=== PATIENT | female | born 1980 ===

== ENCOUNTER 2018-01-19 17:38 | Emergency (ER) | payer OTHER ==
[2018-01-19 17:39] VITALS: BMI 32.9
[2018-01-19 17:50] VITALS: O2SAT 99
[2018-01-19 18:30] LABS: URINE BILIRUBIN NEGATIVE (NEGATIVE); URINE BLOOD NEGATIVE (NEGATIVE); URINE CLARITY Clear (Clear); URINE COLOR Straw (YELLOW); URINE GLUCOSE (UA) NORMAL (Normal); URINE LEUKOCYTE ESTERASE NEG Leu/uL (Negative); URINE PROTEIN NEGATIVE (NEGATIVE); URINE UROBILINOGEN NORMAL mg/dL (0.2-1.0)
[2018-01-19 18:47] LABS: BASO # 0.1 K/uL (0.0-0.2); BASO % 0.9 % (0.0-2.0); EOS # 0.1 K/uL (0.0-0.7); EOS % 1.5 % (0.0-4.0); HEMOGLOBIN 12.8 g/dL (11.0-16.0); LYMPH # 1.8 K/uL (1.0-4.3); LYMPH % 27.3 % (20.0-40.0); MEAN CELL VOLUME 89.5 fL (81.0-99.0); MEAN CORPUSCULAR HEMOGLOBIN 30.5 pg (27.0-31.0); MEAN PLATELET VOLUME 9.5 fL (7.2-11.7); MONO # 0.4 K/uL (0.0-0.8); MONO % 5.5 % (0.0-10.0); NEUT # 4.2 K/uL (1.8-7.0); NEUT % 64.8 % (50.0-75.0); NRBC % 0.1 % (0.0-2.0); RBC 4.21 Mil/uL (3.80-5.20); RED CELL DISTRIBUTION WIDTH 13.4 % (11.5-14.5); WHITE BLOOD COUNT 6.5 K/uL (4.8-10.8)
--- NOTE | 2018-01-19 19:01 | C.PDOC ---
History Of Present Illness 38 y/o female presents to the ED complaining of crampy right lower quadrant abdominal pain, ongoing for some time now. PMHx is significant for chronic constipation (on stool softeners) and s/p hysterectomy. Otherwise patient has no nausea, vomiting, diarrhea, fever, or chills. Patient states bowel movements are normal for her. Time Seen by Provider: 01/19/18 18:21 Chief Complaint (Nursing): Abdominal Pain History Per: Patient History/Exam Limitations: no limitations Onset/Duration Of Symptoms: Days Current Symptoms Are (Timing): Still Present Past Medical History Reviewed: Historical Data, Nursing Documentation, Vital Signs Vital Signs: Last Vital Signs Temp 98.1 F 01/19/18 17:47 Pulse 68 01/19/18 17:47 Resp 18 01/19/18 17:47 BP 117/73 01/19/18 17:47 Pulse Ox 99 01/19/18 19:03 - Medical History PMH: Seizures (LAST EPISODE 1999-NO MEDS. " THEY SAY IT WAS FROM MY NERVES.") Surgical History: Appendectomy Other Surgeries: Hysterectomy - [facility] Procedures OTHER APPENDECTOMY (07/03/06) Family History: States: Unknown Family Hx - Social History Hx Tobacco Use: No Hx Alcohol Use: Yes Hx Substance Use: No - Immunization History Hx Tetanus Toxoid Vaccination: No Hx Influenza Vaccination: Yes Hx Pneumococcal Vaccination: No Review Of Systems Except As Marked, All Systems Reviewed And Found Negative. Constitutional: Negative for: Fever, Chills Gastrointestinal: Positive for: Abdominal Pain, Constipation (but BMs "normal for her"). Negative for: Nausea, Vomiting, Diarrhea Genitourinary: Negative for: Dysuria, Frequency, Hematuria Musculoskeletal: Negative for: Back Pain Physical Exam - Physical Exam Appears: Non-toxic, No Acute Distress Skin: Normal Color, Warm, Dry Head: Atraumatic, Normacephalic Eye(s): bilateral: Normal Inspection Oral Mucosa: Moist Neck: Normal ROM, Supple Chest: Symmetrical Cardiovascular: Rhythm Regular, No Murmur Respiratory: Normal Breath Sounds, No Rales, No Rhonchi, No Wheezing Gastrointestinal/Abdominal: Soft, No Tenderness (with no tenderness to RLQ), No Distention, No Guarding Back: Normal Inspection Extremity: Bilateral: Atraumatic, Normal Color And Temperature, Normal ROM Neurological/Psych: Oriented x3, Normal Speech, Normal Cranial Nerves ED Course And Treatment - Laboratory Results Result Diagrams: 01/19/18 18:42 01/19/18 18:42 Lab Interpretation: Normal (ua neg.) Urine POC: Negative O2 Sat by Pulse Oximetry: 99 (RA) Pulse Ox Interpretation: Normal - Radiology CXR: Interpreted by Me CXR Interpretation: Yes: No Acute Disease - Other Rad abd x 2 X-Ray: Interpreted by Me (+FOS) Medical Decision Making Medical Decision Making: Prior records reviewed: Last pelvic US was >1 year ago. Initial Plan: * CMP * CBC * Lipase * Urinalysis * Urine preg * X-ray obstructive series acute on chronic constipation Disposition Doctor Will See Patient In The: Office Counseled Patient/Family Regarding: Studies Performed, Diagnosis - Disposition Disposition: HOME/ ROUTINE Disposition Time: 19:19 Condition: GOOD Forms: [facility] (Indian) - Clinical Impression Clinical Impression: Colicky RLQ abdominal pain - Scribe Statement The provider has reviewed the documentation as recorded by the Scribe (Antonia Regalado) Provider Attestation: All medical record entries made by the Scribe were at my direction and personally dictated by me. I have reviewed the chart and agree that the record accurately reflects my personal performance of the history, physical exam, medical decision making, and the department course for this patient. I have also personally directed, reviewed, and agree with the discharge instructions and disposition.
[2018-01-19 19:07] LABS: ALB/GLOB RATIO 1.4 (1.0-2.1); ALBUMIN 4.1 g/dL (3.5-5.0); ALT/SGPT 25 U/L (9-52); AST/SGOT 23 U/L (14-36); BLOOD UREA NITROGEN 11 mg/dL (7-17); CALCIUM 9.2 mg/dl (8.6-10.4); GFR AFRICAN-AMERICAN > 60; GFR NON-AFRICAN AMERICAN > 60; LIPASE 69 U/L (23-300)
[2018-01-19 19:38] VITALS: BP 128/84; PULSE 62; RESP 16; TEMP 98.2
--- NOTE | 2018-01-20 08:02 | RAD ---
Date of service: 01/19/2018 PROCEDURE: Radiographs of the chest and abdomen (obstructive series) HISTORY: abd pain, RLA COMPARISON: No prior. TECHNIQUE: AP radiograph of the chest, with upright and supine radiographs of the abdomen. FINDINGS: CHEST: Lungs: Clear. Cardiovascular: Normal size heart. No pulmonary vascular congestion. Pleura: No pleural fluid. No pneumothorax. Other findings: None. ABDOMEN AND PELVIS: Bowel: Moderate stool retention No evidence of mechanical obstruction. Free air: None. Bones: Mild lumbar spondylosis Other findings: None. IMPRESSION: No infiltrate. Moderate stool retention. No evidence of mechanical bowel obstruction.
== END 2018-01-19 19:36 | disposition home or self-care (01) ==
LOC: C.ER 17:38
DX: R10.31 Right lower quadrant pain (principal)

== ENCOUNTER 2018-05-22 15:30 | Emergency (ER) | payer OTHER ==
[2018-05-22 15:31] VITALS: BMI 32.9
[2018-05-22 15:51] VITALS: BP 133/86; PULSE 62; RESP 15; TEMP 97.5; O2SAT 100
--- NOTE | 2018-05-22 16:22 | C.PDOC ---
History Of Present Illness 38 year old female presents to the ED for evaluation of nasal congestion and sore throat which began two days ago. Patient reports difficulty breathing through her nose, due to the nasal congestion. She has been taking DayQuil without relief. Patient denies fever, chills, cough, chest pain, headache. Time Seen by Provider: 05/22/18 16:02 Chief Complaint (Nursing): Cough, Cold, Congestion History Per: Patient History/Exam Limitations: no limitations Onset/Duration Of Symptoms: Days (2) Current Symptoms Are (Timing): Still Present Location Of Pain: Throat Associated Symptoms: Sore Throat, Nasal Congestion. denies: Fever, Cough Additional History Per: Patient Past Medical History Reviewed: Historical Data, Nursing Documentation, Vital Signs Vital Signs: Last Vital Signs Temp 97.5 F L 05/22/18 15:47 Pulse 62 05/22/18 15:47 Resp 15 05/22/18 15:47 BP 133/86 05/22/18 15:47 Pulse Ox 100 05/22/18 15:47 - Medical History PMH: Seizures (LAST EPISODE 1999-NO MEDS. " THEY SAY IT WAS FROM MY NERVES.") Surgical History: Appendectomy - [facility] Procedures OTHER APPENDECTOMY (07/03/06) Family History: States: Unknown Family Hx - Social History Hx Tobacco Use: No Hx Alcohol Use: Yes Hx Substance Use: No - Immunization History Hx Tetanus Toxoid Vaccination: No Hx Influenza Vaccination: Yes Hx Pneumococcal Vaccination: No Review Of Systems Constitutional: Negative for: Fever ENT: Positive for: Nose Congestion, Throat Pain Cardiovascular: Negative for: Chest Pain Respiratory: Positive for: Shortness of Breath. Negative for: Cough Neurological: Negative for: Headache Physical Exam - Physical Exam Appears: Non-toxic, No Acute Distress Skin: Normal Color, Warm, Dry Head: Atraumatic, Normacephalic Eye(s): bilateral: Normal Inspection Ear(s): Bilateral: Normal Nose: Other (nasal congestion, boggy tubinate in left nare ) Oral Mucosa: Moist Throat: Erythema (minimal ), No Exudate Neck: Supple Chest: Symmetrical, No Deformity, No Tenderness Cardiovascular: Rhythm Regular, No Murmur Respiratory: Normal Breath Sounds, No Rales, No Rhonchi, No Wheezing Extremity: Normal ROM Neurological/Psych: Oriented x3, Normal Speech, Normal Cognition ED Course And Treatment O2 Sat by Pulse Oximetry: 100 (on RA) Pulse Ox Interpretation: Normal Medical Decision Making Medical Decision Making: Progress: On reassessment, patient is resting comfortably, showing no signs of distress and is stable for discharge. Patient is advised to follow up with her PMD within 1-2 days for further evaluation and/or return to the ED if symptoms persist or worsen. Disposition Counseled Patient/Family Regarding: Diagnosis, Need For Followup, Rx Given - Disposition Disposition: HOME/ ROUTINE Disposition Time: 16:14 Condition: GOOD Additional Instructions: You can take daily antihistamine such as Claritin, Astrid or Zyrtec Use nasal spray daily Take decongestant as needed 2-3 times a day Can use neti pot/ hot steam or moisture Prescriptions: Brompheniramin/Pseudoephedrine [Rynex Pse Liquid] 473 ml PO Q8 #1 lobito Triamcinolone Acetonide [Nasacort] 16.9 ml NS DAILY 10 Days #1 spray Instructions: Upper Respiratory Infection (ED) Forms: [facility] ([place]ri[place]) - POA Present On Arrival: None - Clinical Impression Clinical Impression: Upper respiratory infection, Nasal congestion - PA / RESPONDER / Resident Statement MD/DO has reviewed & agrees with the documentation as recorded. - Scribe Statement The provider has reviewed the documentation as recorded by the Scribe (Radha Hernandez) All medical record entries made by the Scribe were at my direction and personally dictated by me. I have reviewed the chart and agree that the record accurately reflects my personal performance of the history, physical exam, medical decision making, and the department course for this patient. I have also personally directed, reviewed, and agree with the discharge instructions and disposition.
== END 2018-05-22 16:33 | disposition home or self-care (01) ==
LOC: C.ER 15:30
DX: J06.9 Acute upper respiratory infection, unspecified (principal); R09.81 Nasal congestion

== ENCOUNTER 2018-06-16 10:28 | Emergency (ER) | payer OTHER ==
[2018-06-16 10:34] VITALS: BMI 32.7
[2018-06-16 10:36] VITALS: BP 110/56; RESP 18; TEMP 97.6; O2SAT 98
[2018-06-16] MEDS ORDERED: Albuterol 0.083% Inhal Sol (2.5 mg/3 mL) UD INH STA (10:55)
[2018-06-16] MEDS ORDERED: Albuterol 0.083% Inhal Sol (2.5 mg/3 mL) UD ONE (11:17)
--- NOTE | 2018-06-16 11:22 | C.PDOC ---
History Of Present Illness 38 y/o female comes in complaining of a productive cough with yellow green phlegm and some congestion, associated with nausea but no abdominal pain. Patient states she is taking over the counter medications with no improvement. Also complains of intermittent sore throat but no fever, vomiting, or diarrhea. Patient had positive sick contacts with her children. Time Seen by Provider: 06/16/18 10:46 Chief Complaint (Nursing): Cough, Cold, Congestion History Per: Patient History/Exam Limitations: no limitations Onset/Duration Of Symptoms: Days Current Symptoms Are (Timing): Still Present Past Medical History Reviewed: Historical Data, Nursing Documentation, Vital Signs Vital Signs: Last Vital Signs Temp 97.6 F 06/16/18 10:34 Pulse 67 06/16/18 10:34 Resp 18 06/16/18 10:34 BP 110/56 L 06/16/18 10:34 Pulse Ox 98 06/16/18 10:34 - Medical History PMH: Seizures (LAST EPISODE 1999-NO MEDS. " THEY SAY IT WAS FROM MY NERVES.") Surgical History: Appendectomy - [facility] Procedures OTHER APPENDECTOMY (07/03/06) Family History: States: No Known Family Hx - Social History Hx Tobacco Use: No Hx Alcohol Use: Yes Hx Substance Use: No - Immunization History Hx Tetanus Toxoid Vaccination: No Hx Influenza Vaccination: Yes Hx Pneumococcal Vaccination: No Review Of Systems Except As Marked, All Systems Reviewed And Found Negative. ENT: Positive for: Nose Congestion, Throat Pain (Sore throat) Respiratory: Positive for: Cough Physical Exam - Physical Exam Appears: Non-toxic, No Acute Distress Skin: Normal Color, Warm, Dry Head: Atraumatic, Normacephalic Eye(s): bilateral: Normal Inspection, PERRL, EOMI Oral Mucosa: Moist Throat: Erythema (Tonsillar erythema), No Exudate Neck: Supple Cardiovascular: Rhythm Regular, No Murmur Respiratory: No Rales, No Rhonchi, No Wheezing, Other (Coarse breath sounds) Gastrointestinal/Abdominal: Soft, No Tenderness Extremity: Bilateral: Atraumatic, Normal Color And Temperature, Normal ROM Neurological/Psych: Oriented x3, Normal Speech ED Course And Treatment O2 Sat by Pulse Oximetry: 98 (RA) Pulse Ox Interpretation: Normal Medical Decision Making Medical Decision Making: Impression: Bronchitis Plan: --Albuterol 2.5 mg INH --Zithromax 500 mg PO --Prednisone 40 mg PO --POC Disposition Counseled Patient/Family Regarding: Diagnosis, Need For Followup, Rx Given - Disposition Disposition: HOME/ ROUTINE Disposition Time: 11:35 Condition: STABLE Additional Instructions: follow up with your doctor within 2 days call to make an appointment take medications as prescribed return to ER if symptoms worsens or progress Prescriptions: Albuterol HFA [Ventolin HFA 90 mcg/actuation (8 g)] 2 puff IH [id number] #1 puff Azithromycin [Zithromax] 250 mg PO DAILY #4 tab Benzonatate [Tessalon Perles] 100 mg PO BID PRN #14 tab PRN Reason: Cough Instructions: Acute Bronchitis Forms: General Discharge Instructions, [facility] (Liberian), Work Excuse - Clinical Impression Clinical Impression: Bronchitis - Scribe Statement The provider has reviewed the documentation as recorded by the Nadia Mcnulty Provider Attestation: All medical record entries made by the Filiibhussein were at my direction and personally dictated by me. I have reviewed the chart and agree that the record accurately reflects my personal performance of the history, physical exam, medical decision making, and the department course for this patient. I have also personally directed, reviewed, and agree with the discharge instructions and disposition.
[2018-06-16 11:34] VITALS: PULSE 94
== END 2018-06-16 11:33 | disposition home or self-care (01) ==
LOC: C.ER 10:28
DX: J40 Bronchitis, not specified as acute or chronic (principal)